=== PATIENT | female | born 1995 | race Caucasian/White ===

== ENCOUNTER 2023-02-07 01:09 | Inpatient (IN) ==
[2023-02-07] MEDS ORDERED: Buffered Lidocaine 1% SYRIN 1 ml INTRADERM ONE (01:32)
[2023-02-07] MEDS ORDERED: Lactated Ringers 1000 ml BAG 1,000 ML IV ONE ×2 (02:22→04:50)
[2023-02-07] MEDS ORDERED: Lidocaine 1% VIAL 10 MG/ML 30 ML VIAL INJ PRN (02:22)
[2023-02-07] MEDS ORDERED: Lactated Ringers 1000 ml BAG 1,000 ML IV SCH ×3 (03:00→14:00)
[2023-02-07 03:30] LABS: ABS Basophils 0.1 10^3/uL (0.0-0.1); ABS Lymphocytes 1.8 10^3/uL (1.0-4.8); ABS Monocytes 0.7 10^3/uL (0.0-0.9); ABS Neutrophils 6.1 10^3/uL (1.5-7.6); ABS Nucleated RBC 0.01 10^3/ul; Eosinophil % 0.4 %; Hematocrit 34.8 % (35-45); Hemoglobin 12.1 g/dL (11.5-14.3); Lymphocyte % 20.9 %; Mean Corpuscular Hgb Conc 34.6 g/dL (31-36); Mean Corpuscular Volume 89.5 fL (80-97); Mean Platelet Volume 9.6 fL (7.5-11.2); Nucleated Red Blood Cells % 0.1 /100 WBC (0.0-0.4); Platelet Count 187 10^3/uL (150-450); Red Blood Count 3.89 10^6/uL (3.63-4.92); Red Cell Distribution Width 13.2 % (12-17); White Blood Count 8.6 10^3/uL (3.8-11.8)
[2023-02-07] MEDS ORDERED: OBEPIDURAL (200 ML) 200 ML EPIDURAL ONE (03:45)
[2023-02-07] MEDS ORDERED: Lidocaine 1.5% EPI 1:200,000 30 ML SDV ONE (03:46)
[2023-02-07] MEDS ORDERED: Phenylephrine 40 mcg/mL 10mL (400mcg) SYRINGE IV PUSH PRN ×2 (04:50)
[2023-02-07] MEDS ORDERED: Sodium Citrate/Citric Acid LIQ 15 ML UDC PO PRN (04:50)
[2023-02-07] MEDS ORDERED: OBEPIDURAL (200 ML) 200 ML EPIDURAL SCH (05:00)
[2023-02-07] MEDS ORDERED: Terbutaline INJ 1 MG/ML 1 ml VIAL ONE (05:01)
[2023-02-07 05:51] LABS: Urine Appearance Clear; Urine Bilirubin Negative (Negative); Urine Blood 2+ (Negative); Urine Color Yellow; Urine Glucose Negative (Negative); Urine Ketones Negative (Negative); Urine Nitrite Negative (Negative); Urine Protein Negative (Negative); Urine Specific Gravity 1.009 (1.002-1.030); Urine Urobilinogen Negative (Negative)
[2023-02-07 06:03] LABS: Urine Bacteria Absent (Absent); Urine Red Blood Cell 3+(>10/hpf) (Absent); Urine Squamous Epithelial Cell Present (Absent); Urine White Blood Cell 2+(11-20/hpf) (Absent)
[2023-02-07 06:24] LABS: Urine Benzodiazepine Screen None Detected (None Detect); Urine Cannabinoids Screen None Detected (None Detect); Urine Opiates Screen None Detected (None Detect)
[2023-02-07] MEDS ORDERED: Oxytocin in LR 20,000 MILLI.UNIT/1,000 ML BAG IV ONE (13:01)
[2023-02-07] MEDS ORDERED: Glycerin ADULT 2.4 gm SUPP PR PRN (13:28)
[2023-02-07] MEDS ORDERED: Oxytocin in LR 20,000 MILLI.UNIT/1,000 ML BAG IV SCH (13:30)
[2023-02-07] MEDS ORDERED: Varicella Virus Vaccine Live 0.5 ML VIAL SUBCUT ONE (14:00)
[2023-02-07] MEDS: Witch Hazel PAD JAR TOPICAL PRN (20:48)
[2023-02-07] MEDS: Dibucaine 1% OINT 28.35 GM TUBE PR PRN (20:49)
[2023-02-08 06:49] LABS: ABS Lymphocytes 1.8 10^3/uL (1.0-4.8); ABS Monocytes 0.5 10^3/uL (0.0-0.9); ABS Neutrophils 7.9 10^3/uL (1.5-7.6); Eosinophil % 0.4 %; Hematocrit 27.7 % (35-45); Hemoglobin 9.5 g/dL (11.5-14.3); Lymphocyte % 17.7 %; Mean Corpuscular Hemoglobin 31.5 pg (27-33); Mean Corpuscular Hgb Conc 34.5 g/dL (31-36); Mean Corpuscular Volume 91.2 fL (80-97); Mean Platelet Volume 9.1 fL (7.5-11.2); Platelet Count 124 10^3/uL (150-450); Red Blood Count 3.03 10^6/uL (3.63-4.92); Red Cell Distribution Width 13.4 % (12-17); White Blood Count 10.3 10^3/uL (3.8-11.8)
[2023-02-08] MEDS: Witch Hazel PAD JAR TOPICAL PRN (21:18)
[2023-02-08] MEDS: Dibucaine 1% OINT 28.35 GM TUBE PR PRN (21:19)
[2023-02-09 08:30] VITALS: BP 109/69
== END 2023-02-09 14:50 | disposition home or self-care (01) | DRG 807 ==
LOC: MCHOBOUT 01:09 → MCHOB 02:09
PROVIDERS: ADMIT Midwife; ATTEND Midwife